=== PATIENT | female | born 1980 ===

== ENCOUNTER 2023-03-05 11:28 | Outpatient (CLI) | payer BC | END 2023-03-05 11:29 | disposition home or self-care (01) | LOC: BICRAD 11:28 | PROVIDERS: ATTEND Internal Medicine Rheumatology | DX: M25.571 Pain in right ankle and joints of right foot (principal); M25.541 Pain in joints of right hand; M25.542 Pain in joints of left hand; M25.572 Pain in left ankle and joints of left foot; M35.05 Sjogren syndrome with inflammatory arthritis ==